=== PATIENT | male | born 1990 | race Caucasian/White ===

== ENCOUNTER 2018-01-20 14:03 | Emergency (ER) | payer MEDICARE, MEDICAID ==
[~2018-01-20] VITALS: Ht 177.8 cm; Wt 75.0 kg
[~2018-01-20 14:03] MED LIST: CLON1TAB4 PO; LISD50CA3 PO; QUET25TA PO
[2018-01-20 14:21] VITALS: BP 131/70
[2018-01-20 15:18] LABS: BASOPHILS % (AUTO) 0.3 % (0-1); EOSINOPHILS # (AUTO) 0.4 X10'3 (0-0.9); EOSINOPHILS % (AUTO) 7.5 % (0-6); HEMATOCRIT 40.3 % (42.0-52.0); LYMPHOCYTES # (AUTO) 1.8 X10'3 (1.1-4.8); LYMPHOCYTES % (AUTO) 32.3 % (21-51); MEAN CORPUSCULAR HEMOGLOBIN 31.7 PG (27.0-31.0); MEAN CORPUSCULAR HGB CONC 34.7 % (33.0-36.5); MEAN CORPUSCULAR VOLUME 91.5 FL (78-98); MONOCYTES # (AUTO) 0.6 X10'3 (0-0.9); NEUTROPHILS # (AUTO) 2.7 X10'3 (1.8-7.7); NEUTROPHILS % (AUTO) 48.9 % (42-75); PLATELET COUNT 219 X10'3 (140-440); RED BLOOD COUNT 4.41 X10'6 (4.70-6.10); RED CELL DISTRIBUTION WIDTH 13.4 % (11.5-14.5); WHITE BLOOD COUNT 5.4 X10'3 (4.5-11.0)
[2018-01-20 15:46] LABS: ALANINE AMINOTRANSFERASE 32 U/L (12-78); ALBUMIN 3.3 G/DL (3.4-5.0); ALKALINE PHOSPHATASE 76 IU/L (46-116); ANION GAP 10 (8-16); ASPARTATE AMINO TRANSFERASE 17 U/L (10-37); BILIRUBIN,TOTAL 0.2 MG/DL (0.1-1.0); BLOOD UREA NITROGEN 9 MG/DL (7-18); BUN/CREATININE RATIO 10.6 (5.4-32.0); CALCIUM 8.5 MG/DL (8.5-10.1); CHLORIDE 103 MMOL/L (99-107); CREATININE 0.85 MG/DL (0.60-1.10); ETHANOL < 0.010 GM/DL (0.0-0.010); GLUCOSE 122 MG/DL (70-104); POTASSIUM 3.7 MMOL/L (3.5-5.1); SODIUM 140 MMOL/L (135-145); TOTAL CARBON DIOXIDE 27.5 MMOL/L (24-32); TOTAL PROTEIN 6.6 G/DL (6.4-8.2); eGFR > 90 ML/MIN
[2018-01-20 15:48] LABS: ACETAMINOPHEN < 2.0 UG/ML (10-30)
[2018-01-20 16:01] LABS: CLARITY,URINE CLEAR (Clear); COLOR,URINE YELLOW (Yellow); GLUCOSE, URINE NEGATIVE (Neg); KETONES,URINE NEGATIVE (Neg); LEUKOCYTE ESTERASE ,URINE NEGATIVE (Neg); NITRITES, URINE NEGATIVE (Neg); OCCULT BLOOD,URINE NEGATIVE (Neg); PH,URINE 6.5 (4.8-8.0); PROTEIN,URINE NEGATIVE (Neg); UA COLLECTION TYPE NON-SPECIFIED
[2018-01-20 16:06] LABS: URINE AMPHETAMINE SCREEN NEGATIVE (Neg); URINE BARBITUATE SCREEN NEGATIVE (Neg); URINE BENZODIAZEPINES SCREEN NEGATIVE (Neg); URINE CANNABINOID SCREEN POSITIVE (Neg); URINE COCAINE SCREEN NEGATIVE (Neg); URINE METHADONE SCREEN NEGATIVE (Neg); URINE OPIATE SCREEN NEGATIVE (Neg); URINE PHENCYCLIDINE SCREEN NEGATIVE (Neg)
== END 2018-01-20 20:25 | disposition home or self-care (01) ==
LOC: ER 14:04
DX: F20.9 Schizophrenia, unspecified (principal); F19.10 Other psychoactive substance abuse, uncomplicated; F12.10 Cannabis abuse, uncomplicated; F15.10 Other stimulant abuse, uncomplicated; F41.9 Anxiety disorder, unspecified; Z88.0 Allergy status to penicillin; Z56.0 Unemployment, unspecified
CPT/HCPCS: 36415; 80053; 80305; 80320; 80329; 81003; 84443; 85025; 99284

== ENCOUNTER 2022-03-06 11:21 | Emergency (ER) | payer BC, MEDICAID ==
[~2022-03-06] VITALS: Ht 177.8 cm; Wt 61.4 kg
[~2022-03-06 11:21] MED LIST changes: -CLON1TAB4 PO; -LISD50CA3 PO
[2022-03-06] MEDS ORDERED: diphenhydrAMINE 50 mg/ml inj IM ONE (12:40)
[2022-03-06] MEDS ORDERED: LORazepam 2 mg/ml vial IM ONE (12:40)
[2022-03-06] MEDS ORDERED: haloperidol lactate 5mg/ml inj IM ONE (12:40)
[2022-03-06] MEDS ORDERED: [UNRECOGNIZED DRUG - CODE] PO (13:02)
[2022-03-06] MEDS ORDERED: HYDR-3927 PO (13:02)
--- NOTE | 2022-03-06 13:09 | NUR ---
PATIENT DRESSED IN GREEN SCRUBS AND IS STILL ACTIVE AND EASILY AGITATED WHEN ASKED TO REMOVED HIS BRACELETS AND RINGS. RESTING ON GURNEY AND VISIBLE FROM NURSES STATION.
[2022-03-06 13:59] LABS: BASOPHILS % (AUTO) 0.8 % (0-1); EOSINOPHILS # (AUTO) 0.2 X10'3 (0-0.9); EOSINOPHILS % (AUTO) 4.3 % (0-6); HEMATOCRIT 39.7 % (42.0-52.0); HEMOGLOBIN 13.3 g/dl (14.0-17.9); LYMPHOCYTES # (AUTO) 1.1 X10'3 (1.1-4.8); LYMPHOCYTES % (AUTO) 25.2 % (21-51); MEAN CORPUSCULAR HEMOGLOBIN 29.9 PG (27.0-31.0); MEAN CORPUSCULAR HGB CONC 33.5 g/dL (33.0-36.5); MEAN CORPUSCULAR VOLUME 89.2 FL (78-98); MEAN PLATELET VOLUME 8.1 FL (7.4-10.4); MONOCYTES # (AUTO) 0.5 X10'3 (0-0.9); NEUTROPHILS # (AUTO) 2.5 X10'3 (1.8-7.7); NEUTROPHILS % (AUTO) 57.7 % (42-75); PLATELET COUNT 184 X10'3 (140-440); RED BLOOD COUNT 4.45 X10'6 (4.70-6.10); RED CELL DISTRIBUTION WIDTH 12.8 % (11.5-14.5); WHITE BLOOD COUNT 4.3 X10'3 (4.5-11.0)
[2022-03-06 14:18] LABS: ALANINE AMINOTRANSFERASE 51 U/L (12-78); ALBUMIN 3.5 G/DL (3.4-5.0); ALBUMIN/GLOBULIN RATIO 1.3 (1.1-1.5); ALKALINE PHOSPHATASE 57 IU/L (46-116); ANION GAP 11 (8-16); ASPARTATE AMINO TRANSFERASE 49 U/L (10-37); BILIRUBIN,TOTAL 0.7 MG/DL (0.1-1.0); BLOOD UREA NITROGEN 9 MG/DL (7-18); BUN/CREATININE RATIO 10.3 (5.4-32.0); CALCIUM 8.2 MG/DL (8.5-10.1); CHLORIDE 104 MMOL/L (99-107); CREATININE 0.87 MG/DL (0.60-1.10); GLUCOSE 99 MG/DL (70-104); POTASSIUM 3.7 MMOL/L (3.5-5.1); SODIUM 142 MMOL/L (135-145); TOTAL CARBON DIOXIDE 27.5 MMOL/L (24-32); TOTAL PROTEIN 6.2 G/DL (6.4-8.2); eGFR > 90 ML/MIN
[2022-03-07 02:55] LABS: URINE AMPHETAMINE SCREEN NEGATIVE (Neg); URINE BARBITUATE SCREEN NEGATIVE (Neg); URINE BENZODIAZEPINES SCREEN NEGATIVE (Neg); URINE CANNABINOID SCREEN NEGATIVE (Neg); URINE COCAINE SCREEN NEGATIVE (Neg); URINE METHADONE SCREEN NEGATIVE (Neg); URINE OPIATE SCREEN NEGATIVE (Neg); URINE PHENCYCLIDINE SCREEN NEGATIVE (Neg)
[2022-03-07 03:02] LABS: CLARITY,URINE CLEAR (Clear); GLUCOSE, URINE NEGATIVE (Neg); KETONES,URINE NEGATIVE (Neg); LEUKOCYTE ESTERASE ,URINE NEGATIVE (Neg); NITRITES, URINE NEGATIVE (Neg); OCCULT BLOOD,URINE NEGATIVE (Neg); PH,URINE 6.5 (4.8-8.0); PROTEIN,URINE NEGATIVE (Neg); UROBILINOGEN,URINE 0.2 E.U/dL (0.2-1.0)
[2022-03-07 03:04] LABS: COLOR,URINE AMBER (Yellow); UA COLLECTION TYPE CLN CATCH MIDSTREAM
[2022-03-07] MEDS ORDERED: HYDR25CA PO (05:30)
[2022-03-07] MEDS: hydrOXYzine 25 MG tablet PO SCH (08:00)
[2022-03-07] MEDS: TYPE IN GENERIC & BRAND NAME OF PATIENT MED STRENGTH & FORM PO SCH (08:00)
--- NOTE | 2022-03-07 11:09 | NUR ---
TC FROM PATIENT'S FATHER, MARVIN AVITIA. FATHER WILL BE SENDING PATIENT'S HOME MEDICATION VIA LOG CHIPPER OPERATOR.
--- NOTE | 2022-03-07 16:00 | NUR ---
RECEIVED PATIENT INTO ROOM 22, REQUESTED EAR PLUGS, OFFERED WATER. LAYING IN BED COMFORTABLY.
--- NOTE | 2022-03-07 19:29 | NUR ---
The patient has been restless but pleasant and redirectable. He denies suicidal thoughts or thoughts to harm others. He does report constant voices and when asked what they were saying he stated, "Nothing at all really" He appears disheveled. His speech is slightly rapid.
--- NOTE | 2022-03-07 20:13 | NUR ---
The patient is resting on his bed.
--- NOTE | 2022-03-07 22:01 | NUR ---
The patient is resting on his bed. He was up once to use the bathroom
--- NOTE | 2022-03-07 23:19 | NUR ---
The patient appears to be sleeping.
--- NOTE | 2022-03-08 00:31 | NUR ---
The patient appears to be sleeping
--- NOTE | 2022-03-08 01:51 | NUR ---
The patient appears to be sleeping
--- NOTE | 2022-03-08 03:08 | NUR ---
The patient appears to be sleeping
--- NOTE | 2022-03-08 05:02 | NUR ---
The patient appeared to have slept well during the night
[2022-03-08 06:21] VITALS: BP 99/67
--- NOTE | 2022-03-08 07:00 | NUR ---
Assumed care, Resting in bed with eyes closed. No s/s of distress.
--- NOTE | 2022-03-08 07:01 | NUR ---
PATIENTS DAD PHONE # [phone]
[2022-03-08] MEDS: hydrOXYzine 25 MG tablet PO SCH ×2 (08:00→08:34)
[2022-03-08] MEDS: TYPE IN GENERIC & BRAND NAME OF PATIENT MED STRENGTH & FORM PO SCH (08:34)
--- NOTE | 2022-03-08 09:00 | NUR ---
patient laying in bed awake, resting comfortably.
--- NOTE | 2022-03-08 11:00 | NUR ---
patient laying in bed awake, no s/sx of distress.
[2022-03-08] MEDS ORDERED: nicotine 14mg patch - 24hr TD ONE (13:30)
--- NOTE | 2022-03-08 14:00 | NUR ---
patient requested his suboxone medication received order, patient notified.
[2022-03-08] MEDS ORDERED: buprenorphine/naloxone 8MG-2MG SUBlingual film SL SCH (14:05)
--- NOTE | 2022-03-08 14:35 | NUR ---
Received call from [facility] patient accepted at [facility] in [place] clam picker time 1500, patient made aware accepting of transfer.
--- NOTE | 2022-03-08 15:03 | NUR ---
Patient picked up to be transferred to [facility], medications sent with wood pile driver operator as well as belongings. escorted out by security.
== END 2022-03-08 15:29 ==
LOC: ER 11:21
DX: F79 Unspecified intellectual disabilities (principal); Z20.822 Contact with and (suspected) exposure to COVID-19; R45.851 Suicidal ideations; F41.9 Anxiety disorder, unspecified; F20.9 Schizophrenia, unspecified; F12.90 Cannabis use, unspecified, uncomplicated; F15.90 Other stimulant use, unspecified, uncomplicated; F11.90 Opioid use, unspecified, uncomplicated; Z72.89 Other problems related to lifestyle; Z56.0 Unemployment, unspecified; Z88.0 Allergy status to penicillin; Z79.899 Other long term (current) drug therapy
CPT/HCPCS: 36415; 80053; 80305; 81003; 85025; 87635; 96372; 99285; C9803; J1200; J1630; J2060; Q0177

== ENCOUNTER 2022-03-19 21:00 | Emergency (ER) | payer BC, MEDICAID ==
[~2022-03-19] VITALS: Ht 177.8 cm; Wt 64.5 kg
[~2022-03-19 21:00] MED LIST changes: +HYDR25CA PO; -QUET25TA PO; +[UNRECOGNIZED DRUG - CODE] PO
[2022-03-19 21:09] VITALS: BP 117/69
[2022-03-19] MEDS ORDERED: hydrOXYzine 25 MG tablet PO ONE (21:45)
[2022-03-19] MEDS ORDERED: OLANZapine 2.5MG tablet PO STA ×2 (22:25→22:39)
[2022-03-20] MEDS ORDERED: OLANZapine 2.5MG tablet PO SCH (08:00)
== END 2022-03-19 22:58 | disposition home or self-care (01) ==
LOC: ER 21:00
DX: Z00.00 Encounter for general adult medical examination without abnormal findings (principal); F12.90 Cannabis use, unspecified, uncomplicated; F11.90 Opioid use, unspecified, uncomplicated; F15.90 Other stimulant use, unspecified, uncomplicated; Z56.0 Unemployment, unspecified; Z88.0 Allergy status to penicillin; Z79.899 Other long term (current) drug therapy
CPT/HCPCS: 99283; Q0177

== ENCOUNTER 2022-06-09 21:47 | Inpatient (IN) | payer BC, MEDICAID ==
[~2022-06-09] VITALS: Ht 177.8 cm; Wt 63.3 kg
[2022-06-09] MEDS ORDERED: haloperidol lactate 5mg/ml inj IM ONE (22:30)
[2022-06-09] MEDS ORDERED: LORazepam 2 mg/ml vial IM ONE (22:40)
[2022-06-09] MEDS ORDERED: diphenhydrAMINE 50 mg/ml inj IM ONE (22:40)
--- NOTE | 2022-06-09 22:44 | NUR ---
IRENE RAN OFF THE ER AFTER HE USED THE BATHROOM. HE WAS CHASED BY THE POULTRY PROCESSOR AND SECURITY THAT HAD ESCORTED HIM. BROUGHT BY [facility]O ROOM ANDF MEDICATED ORDERED.
[2022-06-09 22:45] LABS: CLARITY,URINE CLEAR (Clear); COLOR,URINE YELLOW (Yellow); GLUCOSE, URINE NEGATIVE (Neg); KETONES,URINE 15 mg/dl (Neg); LEUKOCYTE ESTERASE ,URINE NEGATIVE (Neg); NITRITES, URINE NEGATIVE (Neg); OCCULT BLOOD,URINE LARGE (Neg); PROTEIN,URINE TRACE mg/dl (Neg); UROBILINOGEN,URINE 0.2 E.U/dL (0.2-1.0)
[2022-06-09 22:48] LABS: UA COLLECTION TYPE CLN CATCH MIDSTREAM
[2022-06-09 22:52] LABS: BACTERIA,URINE FEW /HPF (Neg); RBC,URINE 20-50 /HPF (0-2); SQUAMOUS EPITHELIAL CELL,UR NONE SEEN /LPF (FEW); WBC,URINE NONE SEEN /HPF (0-4)
[2022-06-09 23:15] LABS: BASOPHILS # (AUTO) 0.1 X10'3 (0-0.2); BASOPHILS % (AUTO) 0.5 % (0-1); EOSINOPHILS % (AUTO) 0.1 % (0-6); HEMOGLOBIN 14.7 g/dl (14.0-17.9); LYMPHOCYTES # (AUTO) 1.2 X10'3 (1.1-4.8); LYMPHOCYTES % (AUTO) 12.1 % (21-51); MEAN CORPUSCULAR HEMOGLOBIN 30.5 PG (27.0-31.0); MEAN CORPUSCULAR HGB CONC 34.1 g/dL (33.0-36.5); MEAN CORPUSCULAR VOLUME 89.5 FL (78-98); MEAN PLATELET VOLUME 8.1 FL (7.4-10.4); MONOCYTES # (AUTO) 1.1 X10'3 (0-0.9); MONOCYTES % (AUTO) 11.1 % (2-12); NEUTROPHILS # (AUTO) 7.8 X10'3 (1.8-7.7); NEUTROPHILS % (AUTO) 76.2 % (42-75); PLATELET COUNT 261 X10'3 (140-440); RED BLOOD COUNT 4.81 X10'6 (4.70-6.10); WHITE BLOOD COUNT 10.3 X10'3 (4.5-11.0)
--- NOTE | 2022-06-09 23:21 | NUR ---
PATIENT IS PACING AROUND HIS ROOM
[2022-06-09 23:25] LABS: URINE AMPHETAMINE SCREEN NEGATIVE (Neg); URINE BARBITUATE SCREEN NEGATIVE (Neg); URINE BENZODIAZEPINES SCREEN NEGATIVE (Neg); URINE CANNABINOID SCREEN NEGATIVE (Neg); URINE COCAINE SCREEN NEGATIVE (Neg); URINE METHADONE SCREEN NEGATIVE (Neg); URINE PHENCYCLIDINE SCREEN POSITIVE (Neg)
[2022-06-09 23:34] LABS: ALANINE AMINOTRANSFERASE 23 U/L (12-78); ALBUMIN 4.5 G/DL (3.4-5.0); ALBUMIN/GLOBULIN RATIO 1.4 (1.1-1.5); ALKALINE PHOSPHATASE 80 IU/L (46-116); ANION GAP 15 (8-16); ASPARTATE AMINO TRANSFERASE 21 U/L (10-37); BILIRUBIN,TOTAL 0.8 MG/DL (0.1-1.0); BLOOD UREA NITROGEN 19 MG/DL (7-18); BUN/CREATININE RATIO 13.4 (5.4-32.0); CALCIUM 9.3 MG/DL (8.5-10.1); CHLORIDE 108 MMOL/L (99-107); CREATININE 1.42 MG/DL (0.60-1.10); ETHANOL < 0.010 GM/DL (0.0-0.010); GLUCOSE 143 MG/DL (70-104); POTASSIUM 3.6 MMOL/L (3.5-5.1); SODIUM 145 MMOL/L (135-145); TOTAL CARBON DIOXIDE 22.2 MMOL/L (24-32); TOTAL PROTEIN 7.7 G/DL (6.4-8.2); eGFR 58 ML/MIN
--- NOTE | 2022-06-10 00:12 | NUR ---
PT IS RESTING IN BED AND APPEARS TO BE SLEEPING. EQUAL RISE AND FALL OF CHEST NOTED
--- NOTE | 2022-06-10 00:45 | NUR ---
PATIENT IS AWAKE AND IN BED AT THIS TIME.
--- NOTE | 2022-06-10 01:11 | NUR ---
PT IS PACING IN ROOM, TALKING TO HIMSELF AND PICKING AT THE GROUND. PT IS IN NO APPARENT DISTRESS.
--- NOTE | 2022-06-10 02:13 | NUR ---
PT AT THE [facility] STATION, REQUESTING FOOD TRAY. SNACK PROVIDED. PT ATE AND IS NOW LAYING IN BED. MONTIORING ONGOING
--- NOTE | 2022-06-10 03:46 | NUR ---
PATIENT IS AWAKE IN HIS ROOM. INTERMITTENTLY PACES AROUND AND THEN SITS ON HIS BED. IN NO FORM OF DISTRESS. MONITORING ONGOING.
--- NOTE | 2022-06-10 05:09 | NUR ---
AWAKE IN HIS ROOM, IN NO FORM OF DISTRESS. SAFETY MAINTAINED
--- NOTE | 2022-06-10 06:28 | NUR ---
PATIENT APPEARS TO BE FINALLY SLEEPING IN BED.
--- NOTE | 2022-06-10 07:25 | NUR ---
Pt. was trasferred over from the Main ER. He was able to ambulate accompainied by Tech. Pt. appears impulsive and somewhat hypomanic, he required direction to stay in his room. Will continue to monitor closely.
--- NOTE | 2022-06-10 09:16 | NUR ---
[facility] and doseages. Addendum: 06/10/22 at 1209 by JANEY Pt. reports he has not been taking his ordered Suboxone.
[2022-06-10] MEDS ORDERED: HYDR-3686 PO (09:22)
[2022-06-10] MEDS ORDERED: [UNRECOGNIZED DRUG - CODE] PO (09:22)
--- NOTE | 2022-06-10 09:30 | NUR ---
Pt. is laying in bed sleeping on his left side at this time, rr are even and unlabored.
[2022-06-10] MEDS: [UNRECOGNIZED DRUG - OTHER] PO SCH (09:44)
--- NOTE | 2022-06-10 09:49 | NUR ---
Per pharmacy, pt's home medication Azstarys is not available at the hospital and will need to be brought in from home. Will endorse to pt. Addendum: 06/10/22 at 1027 by JANEY Pt. reports that no-one is available to bring his medication in from home, will endorse to Josselyn garcia.
--- NOTE | 2022-06-10 11:02 | NUR ---
Pt. up at this time, exhibiting random arm movements and dance moves. 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 Able to be redirected.
--- NOTE | 2022-06-10 11:27 | NUR ---
Pt. is sitting up playing a board game at bedside at this time. 1:1 was completed at bedside, pt. contiues to presnt as hypomanic, impulsive, and exhibits pressured and hyperverbal speech. He is disorganized and tangental and requires frequent redirection in order to respond to questions. Pt. is A&O X2 (name and time), he reports he believes he is in [place] and he is here because of the previous of his mother. Pt. states sadly, "That is where she ." Pt. 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 Pt. denies any S/I, H/I, or A/V/LITTLEJOHN, however he appears to be internaly preoccupied AEB actively responding and guesturing aloud at intervals. Addendum: 06/10/22 at 1210 by JANEY Pt. reports he is hoping to get in to [facility].
--- NOTE | 2022-06-10 12:04 | NUR ---
Pt. continues to exhibit restless behaviors AEB random body movements, but denies the need for an anxiolytic at this time. Will continue to monitor closely.
[2022-06-10] MEDS ORDERED: BUPR1FIL17 SL (12:45)
--- NOTE | 2022-06-10 13:00 | NUR ---
Pt. attmpted to snort shampoo out of a bottle while it was sitting his bedside table. Shampoo bottle was removed and pt. was able to be redircted. Will continue to monitor pt. closely.
--- NOTE | 2022-06-10 13:22 | NUR ---
Pt. now requesting Suboxone and reports he last took a dose X4 days ago, this order was verified with pt's pharmacy, [facility]. This was endorsed to Dr. Nicole and Suboxone was ordered to start now and next dose to be given tonight. Will endorse to Noc shift.
--- NOTE | 2022-06-10 15:35 | NUR ---
Pt. is laying in bed at this time, he continues to present as restless and does get up frequently, but returns back to bed. Pt. continues to deny the need for any anxiolytic. Will continue to monitor closely.
--- NOTE | 2022-06-10 17:03 | NUR ---
Pt. talking with [facility] at this time, he became agitated when informed his father is worried about him r/t his recent erratic behaviors. Pt. yelled out, "He's saying that s... again?!" He was able to be redirected and provided with snacks. Will continue to monitor closely.
--- NOTE | 2022-06-10 17:42 | NUR ---
Pt. is laying in ed at this time, rr are even and unlabored.
--- NOTE | 2022-06-10 18:56 | NUR ---
Patient resting quietly in bed in line of sight of staff.
--- NOTE | 2022-06-10 19:24 | NUR ---
Patient resting in bed, quietly
[2022-06-10] MEDS ORDERED: BUPRENORPHINE HCL SL SCH (20:00)
[2022-06-10] MEDS ORDERED: NALOXONE HCL SL SCH (20:00)
[2022-06-10] MEDS ORDERED: buprenorphine/naloxone 2-0.5mg sublingual tablet SL SCH (20:45)
[2022-06-10] MEDS ORDERED: hydrOXYzine 25 MG tablet PO SCH (21:00)
--- NOTE | 2022-06-10 21:44 | NUR ---
Patient resting in bed, awake, pm meds administered as ordered.
--- NOTE | 2022-06-10 23:06 | NUR ---
Patient resting quietly in bed in a safe environment, requested snack supplied.
--- NOTE | 2022-06-11 00:12 | NUR ---
packet faxed to [facility] at [phone]
--- NOTE | 2022-06-11 00:21 | NUR ---
Patient awake, talking to self.
--- NOTE | 2022-06-11 01:32 | NUR ---
Patient awake, in bed, talking to self.
--- NOTE | 2022-06-11 02:54 | NUR ---
Patient, chasity, states he's unable to go back to sleep and requesting snacks- supplied.
--- NOTE | 2022-06-11 03:51 | NUR ---
Patient still talking to self, but quietly.
--- NOTE | 2022-06-11 05:14 | NUR ---
Patient is resting in bed, vital signs wnl.
--- NOTE | 2022-06-11 07:05 | NUR ---
Received Pt in bed sleeping w/o distress at this time.
[2022-06-11] MEDS: [UNRECOGNIZED DRUG - OTHER] PO SCH (08:00)
[2022-06-11] MEDS ORDERED: buprenorphine/naloxone 2-0.5mg sublingual tablet SL SCH (08:15)
--- NOTE | 2022-06-11 08:30 | NUR ---
Pt awake and asking for AM med. Pt ate breakfast and is cooperative.
--- NOTE | 2022-06-11 10:10 | NUR ---
Received call from [facility] stating they had accepted Pt, and would be sending staff to pick him up soon.
--- NOTE | 2022-06-11 10:25 | NUR ---
Pt took AM med w/o issue and thankful.
--- NOTE | 2022-06-11 10:45 | NUR ---
Pt escorted to [facility] by Industrial Automation Specialist and security.
[2022-06-11] MEDS ORDERED: magnesium hydroxide 30ml (MOM) UD suspension PO PRN (11:25)
[2022-06-11] MEDS ORDERED: mag hydrox/Alum hydrox/simeth 30ml oral suspension PO PRN (11:25)
[2022-06-11] MEDS ORDERED: loperamide 2mg capsule PO PRN (11:25)
[2022-06-11] MEDS ORDERED: acetaminophen 325mg tablet PO PRN (11:25)
[2022-06-11 11:32] VITALS: BP 119/71
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
[2022-06-11] MEDS: acetaminophen 325mg tablet PO PRN (13:41)
[2022-06-11] MEDS: nicotine 21mg patch - 24 hr TD SCH (13:50)
[2022-06-11] MEDS: NICOTINE POLACRILEX 2 MG LOZENGE BC PRN ×2 (13:50→21:38)
[2022-06-11] MEDS ORDERED: buprenorphine/naloxone 2-0.5mg sublingual tablet SL ONE (15:00)
[2022-06-11] MEDS ORDERED: olanzapine 10mg tablet PO PRN (15:05)
[2022-06-11] MEDS ORDERED: methylphenidate 5mg tablet PO ONE (18:50)
[2022-06-11 19:00] VITALS: BP 134/66
[2022-06-11] MEDS ORDERED: buprenorphine/naloxone 8MG-2MG SUBlingual film SL SCH (20:00)
[2022-06-11] MEDS ORDERED: hydrOXYzine 25 MG tablet PO SCH (21:00)
[2022-06-11] MEDS: OLANZapine 2.5MG tablet PO SCH (21:12)
[2022-06-11] MEDS: buprenorphine/naloxone 8MG-2MG SUBlingual film SL SCH (21:13)
[2022-06-11] MEDS: hydrOXYzine 25 MG tablet PO PRN (22:34)
[2022-06-12] MEDS: hydrOXYzine 25 MG tablet PO PRN (01:20)
--- NOTE | 2022-06-12 05:03 | NUR ---
PRN Atarax x2 for sleep. Pt refused any other sleep medication. Got only about 2 hours sleep.
--- NOTE | 2022-06-12 05:05 | NUR ---
Nursing Progress Note Problem: PT admitted on a 5150 for DTS/GD from our ER at 1033. Pt is hyper verbal, has disorganized speech with loose associations. He reports he has not been eating, drinking or sleeping for the past three days. Unable to develop a viable plan. Pt has history of Schizophrenia. Pt. 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 Pt. has self-inflicted abrasions on his bilateral lower extremities and the back of his right thigh, these areas appear to be scabbed over and healing well. Pictures placed in pt's chart Intervention: Provide a safe and therapeutic environment, Use clear communication with active listening. Provide positive encouragement. Medication administration, monitoring and education Q15 minute safety checks. Response: Patient up on unit at start of shift. His speech is rapid but linear, he is obsessively making and repeatedly straightening his bed, and he rocks his body and paces at time. He denies that he is manic or has racing thoughts "I just like to be doing something." He is Cooperative and pleasant, took meds encouraged to take PRN medications to help him sleep. Declined the second dose of Zyprexa that was available to him. Agreed to take PRN Atarax and then a repeat dose. Given a snack and a warm blanket encouraged relaxation to try and promote sleep. Pt keeps stating "I am sleeping great But only has a total of 2 hours of sleep for the shift. Per tech spent a lot of the night lying in bed awake. Plan: Patient requires crisis interruption and stabilization with medication management and monitoring in a safe and therapeutic environment.
[2022-06-12] MEDS: buprenorphine/naloxone 8MG-2MG SUBlingual film SL SCH ×2 (07:49→20:00)
[2022-06-12] MEDS: nicotine 21mg patch - 24 hr TD SCH ×2 (07:49→08:00)
[2022-06-12] MEDS: [UNRECOGNIZED DRUG - OTHER] PO SCH (07:50)
[2022-06-12] MEDS: methylphenidate 5mg tablet PO SCH ×3 (07:50→17:00)
[2022-06-12 08:00] VITALS: BP 107/60
--- NOTE | 2022-06-12 09:29 | NUR ---
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 Pt on vegan diet w/ double entrees per diet order/pt preference PO 75-100% avg meals meeting needs. Skin intact w/ healing abrasions per EMR. Pt has no edema, normal muscle strength, and stable wt hx despite reporting 24-33lb wt loss per EMR. Pt lacks minimum malnutrition criteria at this time. RD d/w RN regarding B12 vs MVI supplementation given vegan diet preferences if MD agreeable. Will monitor for further nutrition intervention needs this admit. Addendum: 06/12/22 at [address] Amended: Links added.
[2022-06-12] MEDS: NICOTINE POLACRILEX 2 MG LOZENGE BC PRN ×3 (13:38→19:31)
[2022-06-12] MEDS: nicotine 7mg patch - 24hr TD SCH (16:59)
--- NOTE | 2022-06-12 17:03 | NUR ---
Nursing Progress Note: Johnathan Problem: Pt is hyper-verbal, has disorganized speech with loose associations. He reports he has not been eating, drinking or sleeping for the past three days. Unable to develop a viable plan. Pt has history of Schizophrenia. Intervention: Medication given as ordered. Provided with a safe and therapeutic environment, clear communication, active listening and positive encouragement. Response: Patient is awake in his room at the start of the shift. Takes a short nap before breakfast. Cooperative with assessment and medication except for his nicotine patch. States, I dont think I need those. They are D/Cd until later in the afternoon he complains to the MD of nicotine cravings. New order for 7mg nicotine patch is given. Patient appears hypo manic. He is hyper-verbal when engaged in conversation. Speech is rapid. Patient denies any mental health symptoms at this time but he appears internally occupied. Isolates to his room for most of the shift. Plan: Patient continues to require crisis interruption and stabilization with medication management and monitoring in a safe and therapeutic environment.
[2022-06-12 20:00] VITALS: BP 137/87
[2022-06-12] MEDS: OLANZapine 2.5MG tablet PO SCH (21:08)
--- NOTE | 2022-06-13 03:05 | NUR ---
Nursing Progress Note Problem: PT admitted on a 5150 for DTS/GD from our ER at 1033. Pt is hyper verbal, has disorganized speech with loose associations. He reports he has not been eating, drinking or sleeping for the past three days. Unable to develop a viable plan. Pt has history of Schizophrenia. Pt. 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 Pt. has self-inflicted abrasions on his bilateral lower extremities and the back of his right thigh, these areas appear to be scabbed over and healing well. Pictures placed in pt's chart Intervention: Provide a safe and therapeutic environment, Use clear communication with active listening. Provide positive encouragement. Medication administration, monitoring and education Q15 minute safety checks. Response: Patient up on unit at start of shift. He was less hyperverbal and appeared fatigued. Denied MH symptoms not observed responding to internal stimuli. He wanted MD called to make med changes then changed his mind and said he would take the Zyprexa. After taking the PRN Zyprexa on going to bed pt came out of his room yelled out something about his dad. Per pt he was having a bad dream which he said was caused by the Zyprexa. Pt went back to sleep and appears to be sleeping at this time. Plan: Patient requires crisis interruption and stabilization with medication management and monitoring in a safe and therapeutic environment.
[2022-06-13 08:00] VITALS: BP 100/58
[2022-06-13] MEDS: [UNRECOGNIZED DRUG - OTHER] PO SCH (08:00)
[2022-06-13] MEDS: multivitamins, therapeutics tablet PO SCH (08:08)
[2022-06-13] MEDS: methylphenidate 5mg tablet PO SCH ×3 (08:09→16:10)
[2022-06-13] MEDS: buprenorphine/naloxone 8MG-2MG SUBlingual film SL SCH ×2 (08:10→20:38)
[2022-06-13] MEDS: nicotine 7mg patch - 24hr TD SCH (08:23)
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
[2022-06-13 14:58] LABS: HEMOGLOBIN A1C 5.6 % (4.5-6.2)
[2022-06-13 15:18] LABS: ALANINE AMINOTRANSFERASE 41 U/L (12-78); ALBUMIN/GLOBULIN RATIO 1.1 (1.1-1.5); ALKALINE PHOSPHATASE 88 IU/L (46-116); ANION GAP 6 (8-16); ASPARTATE AMINO TRANSFERASE 26 U/L (10-37); BILIRUBIN,TOTAL 0.1 MG/DL (0.1-1.0); BLOOD UREA NITROGEN 8 MG/DL (7-18); BUN/CREATININE RATIO 9.9 (5.4-32.0); CALCIUM 9.1 MG/DL (8.5-10.1); CHLORIDE 103 MMOL/L (99-107); CHOL/HDL RATIO 2.9 (0.00-4.99); CHOLESTEROL 144 MG/DL (0-200); CREATININE 0.81 MG/DL (0.60-1.10); GLUCOSE 91 MG/DL (70-104); HDL CHOLESTEROL 49 MG/DL (35-60); LDL CHOLESTEROL 73 MG/DL (50-100); POTASSIUM 4.2 MMOL/L (3.5-5.1); SODIUM 142 MMOL/L (135-145); TOTAL PROTEIN 7.6 G/DL (6.4-8.2); TRIGLYCERIDES 105 MG/DL (20-135); eGFR > 90 ML/MIN
[2022-06-13] MEDS: NICOTINE POLACRILEX 2 MG LOZENGE BC PRN (15:48)
--- NOTE | 2022-06-13 16:17 | NUR ---
Nursing Progress Note: Problem: Pt is hyper-verbal, has disorganized speech with loose associations. He reports he has not been eating, drinking or sleeping for the past three days. Unable to develop a viable plan. Pt has history of Schizophrenia. Intervention: Medication given as ordered. Provided with a safe and therapeutic environment, clear communication, active listening and positive encouragement. Response: Received Pt in bed sleeping w/o distress at the beginning of this shift. Pt woke and cooperative with vitals and AM meds. And ate breakfast, lunch and snacks well. Pt pleasant and cooperative and remembered this RN from [facility]. Pt isolated to room and napped on and off. Pt denies SI/HI and A/VHs. Pt knows med times and approaches nurse station to remind staff and speaks with pressured speech. Pt concerned about HIV status and spoke with hospitalist about testing. Plan: Patient continues to require crisis interruption and stabilization with medication management and monitoring in a safe and therapeutic environment.
[2022-06-13 16:19] LABS: HIV ANTIBODY 1&2 RAPID NON-REACTIVE (Neg)
[2022-06-13 20:00] VITALS: BP 116/57
[2022-06-13] MEDS: OLANZapine 2.5MG tablet PO SCH (20:38)
[2022-06-13] MEDS: ibuprofen tablet 400 MG TABLET PO PRN (23:23)
--- NOTE | 2022-06-14 01:02 | NUR ---
Nursing Progress Note: Johnathan Problem: Pt is hyper-verbal, has disorganized speech with loose associations. He reports he has not been eating, drinking or sleeping for the past three days. Unable to develop a viable plan. Pt has history of Schizophrenia. Intervention: Medication given as ordered. Provided with a safe and therapeutic environment, clear communication, active listening and positive encouragement. Response: Received Pt sleeping in bed at change of shift. Pt cooperative with vitals and assessment. Pt up for snacks and requested HS medications. Pt endorses both AH and VH but he can tame them and they are not bad right now. Pt to bed shortly after med pass but woke up several times requesting snacks. Plan: Patient continues to require crisis interruption and stabilization with medication management and monitoring in a safe and therapeutic environment.
[2022-06-14 08:00] VITALS: BP 109/70
[2022-06-14] MEDS: [UNRECOGNIZED DRUG - OTHER] PO SCH (08:00)
[2022-06-14] MEDS: methylphenidate 5mg tablet PO SCH ×3 (08:28→16:58)
[2022-06-14] MEDS: buprenorphine/naloxone 8MG-2MG SUBlingual film SL SCH ×2 (08:28→20:42)
[2022-06-14] MEDS: multivitamins, therapeutics tablet PO SCH (08:28)
[2022-06-14] MEDS: nicotine 7mg patch - 24hr TD SCH ×2 (08:29→08:30)
[2022-06-14] MEDS: ibuprofen tablet 400 MG TABLET PO PRN (08:35)
[2022-06-14] MEDS: acetaminophen 325mg tablet PO PRN ×2 (13:02→23:43)
[2022-06-14] MEDS: NICOTINE POLACRILEX 2 MG LOZENGE BC PRN ×2 (14:06→19:19)
--- NOTE | 2022-06-14 15:21 | NUR ---
Nursing Progress Note: Problem: Pt is hyper-verbal, has disorganized speech with loose associations. He reports he has not been eating, drinking or sleeping for the past three days. Unable to develop a viable plan. Pt has history of Schizophrenia. Intervention: Provided 1:1 assessment allowing pt to express thoughts/feelings. Provided medication administration/education/monitoring. Provided safe and supportive environment. Monitored q 15min safety checks. Response: Pt reports he is homeless until he gets his SSI money next week, "maybe on Monday." He reports plans to live in a motel with his [employer] money and apply for a job. Speech remains hyperverbal, disorganized with loose associations. Pt took medications as ordered. He inquired about lab results taken yesterday. He asked for antibiotic cream for his scabs on his legs from self inflicted cuts prior to hospitalization. Plan: Pt placed on voluntary statues today. He continues to require stabilization with medication management and monitoring in a safe and therapeutic environment.
[2022-06-14] MEDS: naproxen sodium 220mg tablet PO PRN (18:48)
[2022-06-14 20:00] VITALS: BP 121/66
[2022-06-14] MEDS: OLANZapine 2.5MG tablet PO SCH (20:42)
--- NOTE | 2022-06-15 01:26 | NUR ---
Nursing Progress Note: Johnathan Problem: Pt is hyper-verbal, has disorganized speech with loose associations. He reports he has not been eating, drinking or sleeping for the past three days. Unable to develop a viable plan. Pt has history of Schizophrenia. Intervention: Provided 1:1 assessment allowing pt to express thoughts/feelings. Provided medication administration/education/monitoring. Provided safe and supportive environment. Monitored q 15min safety checks. Response: Pt up walking the hallways at change of shift. He is pleasant during conversation and endorses AH but they are not bad today. Pt denies SI. Pt up for snacks and took HS medications. Pt requested PRN Tylenol for an achy back. Pt to bed after med pass. Plan: Pt placed on voluntary statues today. He continues to require stabilization with medication management and monitoring in a safe and therapeutic environment.
--- NOTE | 2022-06-15 07:27 | NUR ---
Initial: Pt admitted w/ schizophrenia per EMR. Currently on Vegan diet w/ double entrees per diet order, eating mostly 100% of meals meeting needs at this time. LBM 06/13. No nutrition intervention implemented at this time, will continue to monitor. Recs; 1. Continue Vegetarian diet as tolerated 2. Bowel care PRN 3. Weekly wts Addendum: 06/15/22 at [address] Amended: Links added.
[2022-06-15 08:00] VITALS: BP 121/76
[2022-06-15] MEDS: [UNRECOGNIZED DRUG - OTHER] PO SCH (08:00)
[2022-06-15] MEDS: buprenorphine/naloxone 8MG-2MG SUBlingual film SL SCH ×2 (08:39→20:26)
[2022-06-15] MEDS: methylphenidate 5mg tablet PO SCH ×3 (08:39→16:21)
[2022-06-15] MEDS: multivitamins, therapeutics tablet PO SCH (08:39)
[2022-06-15] MEDS: nicotine 7mg patch - 24hr TD SCH (10:15)
[2022-06-15] MEDS: naproxen sodium 220mg tablet PO PRN ×2 (10:15→14:53)
[2022-06-15] MEDS: NICOTINE POLACRILEX 2 MG LOZENGE BC PRN ×2 (13:44→18:48)
--- NOTE | 2022-06-15 13:56 | NUR ---
CASE MANAGEMENT Met with Pt. today to call Karen with him to find out where his application is at. Left a messaged. Discussed Pt's discharge plan with him. He is not able to return to his dad's home in [place], [place]. He wants to stay in the [place] area and once he has access to his funds would like to find an apartment to rent in the area. We discussed him staying at the [facility] or the [facility] while he awaits his funding. Placed a referral to the [facility] today. Amanda Almonte LCSW
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
[2022-06-15 16:04] LABS: HBSAG SCREEN Negative (Negative)
[2022-06-15] MEDS ORDERED: LORazepam 1 MG tablet PO ONE (16:35)
[2022-06-15 20:00] VITALS: BP 139/86
[2022-06-15] MEDS: OLANZapine 2.5MG tablet PO SCH (20:26)
--- NOTE | 2022-06-16 00:42 | NUR ---
Nursing Progress Note: Johnathan Problem: Pt is hyper-verbal, has disorganized speech with loose associations. He reports he has not been eating, drinking or sleeping for the past three days. Unable to develop a viable plan. Pt has history of Schizophrenia. Intervention: Medication given as ordered. Provided with a safe and therapeutic environment, clear communication, active listening and positive encouragement. Response: Received Pt up walking the hallways. Pt came to this RN requesting nicotine lozenge. Pt was cooperative with care. Pt denies MH symptoms and states that he is good. Participated in snacks and took all HS medications without issue. Pt up several times requesting snacks. Pt went to bed shortly after med pass. Plan: Patient continues to require crisis interruption and stabilization with medication management and monitoring in a safe and therapeutic environment.
[2022-06-16] MEDS: acetaminophen 325mg tablet PO PRN (01:42)
[2022-06-16 07:09] VITALS: BP 109/63
[2022-06-16] MEDS: methylphenidate 5mg tablet PO SCH ×3 (08:30→16:38)
[2022-06-16] MEDS: buprenorphine/naloxone 8MG-2MG SUBlingual film SL SCH ×3 (08:30→21:35)
[2022-06-16] MEDS: multivitamins, therapeutics tablet PO SCH (08:30)
--- NOTE | 2022-06-16 14:23 | NUR ---
DISCHARGE PLAN/CASE MANAGEMENT Pt. plans to discharge to the [facility] he reported he will stay there until he gets in to [facility] which he has been accepted into as of today. He does not want to call them from the hospital, he plans to call them tomorrow once he is discharged to arrange his admission there. He also plans to go to [facility] to access his money but also reported he has EBT food money. He does not want to go back to his father's house in [place] at this time. Amanda Almonte, MOTOR MAN
--- NOTE | 2022-06-16 18:04 | NUR ---
Nursing Progress Note Problem: Pt is hyper-verbal, has disorganized speech with loose associations. He reports he has not been eating, drinking or sleeping for the past three days. Unable to develop a viable plan. Pt has history of Schizophrenia. Intervention: Medication given as ordered. Provided with a safe and therapeutic environment, clear communication, active listening and positive encouragement. Response: Pt. asleep at start of shift. Pt. awoke for breakfast and took all medications. 1:1 done at bedside. Pt. denies SI/HI, A/V hallucinations. Pt. is hyper verbal and asks multiple times about receiving 20mg of Ritalin instead of 15mg. Pt. reports he is hopeful for his future, finishing his degree in [employer] at [employer]. Pt. seems grandiose, talking about get a second degree in [employer]. Pt. observed playing with color checker roving or yarn and chess pieces in the hallway. Plan: Patient continues to require crisis interruption and stabilization with medication management and monitoring in a safe and therapeutic environment.
[2022-06-16 19:00] VITALS: BP 132/83
[2022-06-16] MEDS: OLANZapine 2.5MG tablet PO SCH (21:35)
--- NOTE | 2022-06-17 04:45 | NUR ---
RN PROGRESS NOTE: PROBLEM: Client admitted for hypomania and delusions. Client made grandiose statements. Disorganized. Hx of Schizophrenia. INTERVENTION: I. Provide therapeutic environment. I. Q 15 min checks for safety. I. Assess mood and thought process. I. 1:1 to allow client to express thoughts and feelings. RESPONSE: Client asked for Suboxone at 18:45 and was informed that it was too early to take medication. Client was given a whole film (instead of half). Instructions on the EMAR (and package) state medication is not to be cut, crushed, or chewed. Dr. Brenner was notified. A set of VS was obtained. BP 120/70, HR 70, Resp 18, PO2 96%. Clients respiratory effort was checked during the shift. Client got up several times during the night. Had snack and was medication compliant. Stated, "I'm getting out tomorrow." Clients mood was upbeat. Denies SI/HI.
[2022-06-17] MEDS: multivitamins, therapeutics tablet PO SCH (07:42)
[2022-06-17] MEDS: buprenorphine/naloxone 8MG-2MG SUBlingual film SL SCH (07:43)
[2022-06-17] MEDS: methylphenidate 5mg tablet PO SCH ×3 (07:43→15:36)
[2022-06-17] MEDS: nicotine 7mg patch - 24hr TD SCH (07:44)
[2022-06-17] MEDS ORDERED: BUPR1FIL5 SL ×3 (07:57→12:39)
[2022-06-17] MEDS ORDERED: METH-350 PO (07:57)
[2022-06-17] MEDS ORDERED: OLAN5TAB75 PO (07:57)
[2022-06-17] MEDS ORDERED: HYDR-3686 PO (07:57)
[2022-06-17] MEDS ORDERED: NICO-630 TD (07:57)
[2022-06-17 08:00] VITALS: BP 116/69
[2022-06-17] MEDS ORDERED: METH-348 PO (08:07)
[2022-06-17] MEDS: NICOTINE POLACRILEX 2 MG LOZENGE BC PRN (13:48)
--- NOTE | 2022-06-17 14:37 | NUR ---
Provided Johnathan $2.00 from [employer] so he can pay his co-pay at the pharmacy for his medications. KALE Miranda
--- NOTE | 2022-06-17 14:50 | NUR ---
Discharge Note: Pt. signed all paperwork and copies were placed in chart. All personal belongings listed on inventory sheet were accounted for and received by pt. when leaving. [facility], [address] [place] [address] on June 24 at 11am. Pt. was provided with a cab and ambulated off the unit at 1442.
== END 2022-06-17 14:42 | disposition home or self-care (01) | DRG 885 ==
LOC: ER 21:48 → ED HOLD 06-11 09:50 → ADULT MH 06-11 11:00
PROVIDERS: ADMIT Psychiatry & Neurology Psychiatry; ATTEND Psychiatry & Neurology Psychiatry
DX: F20.9 Schizophrenia, unspecified (principal); N17.9 Acute kidney failure, unspecified; F16.121 Hallucinogen abuse with intoxication with delirium; F25.9 Schizoaffective disorder, unspecified; F11.90 Opioid use, unspecified, uncomplicated; M25.552 Pain in left hip; M25.551 Pain in right hip; R63.6 Underweight; Z20.822 Contact with and (suspected) exposure to COVID-19; F41.9 Anxiety disorder, unspecified; F90.9 Attention-deficit hyperactivity disorder, unspecified type; F17.210 Nicotine dependence, cigarettes, uncomplicated; R04.0 Epistaxis; Z79.899 Other long term (current) drug therapy; Z88.0 Allergy status to penicillin; Z56.0 Unemployment, unspecified; Z68.20 Body mass index [BMI] 20.0-20.9, adult; Z84.89 Family history of other specified conditions; Z71.6 Tobacco abuse counseling
CPT/HCPCS: 36415; 80053; 80061; 80305; 80320; 81001; 83036; 85025; 86703; 86706; 86708; 87081; 87340; 87811; 96372; 99285; J1200; J1630; J2060; Q0177

== ENCOUNTER 2022-06-18 08:22 | Emergency (ER) | payer BC, MEDICAID ==
[~2022-06-18] VITALS: Ht 175.3 cm; Wt 67.3 kg
[~2022-06-18 08:22] MED LIST changes: +BUPR1FIL5 SL; +HYDR-3686 PO; -HYDR25CA PO; +METH-348 PO; +METH-350 PO; +NICO-630 TD; +OLAN5TAB75 PO; -[UNRECOGNIZED DRUG - CODE] PO
--- NOTE | 2022-06-18 13:01 | NUR ---
patient states he took the gummies because he thought they were regular gummies, but also reports some suicidal thoughts since his motther . states he was just released from 5150 hold here yesterday. MLP at bedside, no plan and no active thoughts at this time
--- NOTE | 2022-06-18 13:11 | NUR ---
attempting to contact poison control at this time
--- NOTE | 2022-06-18 13:14 | NUR ---
per poison control, possible diarrhea with no major complaints. check normal lab work and consider iron level. reference [id number]
[2022-06-18 13:47] VITALS: BP 112/61
--- NOTE | 2022-06-18 14:04 | NUR ---
contacted behavioral health at this time to possibly speak with patient per MLP request. patient is requesting to be placed on additional 5150 after being discharged from this facility yesterday
--- NOTE | 2022-06-18 14:36 | NUR ---
patient advised to follow safety plan from discharge. advised he would and would follow up with psychiatrist
== END 2022-06-18 14:37 | disposition home or self-care (01) ==
LOC: ER 08:23
DX: E67.8 Other specified hyperalimentation (principal); T45.2X1A Poisoning by vitamins, accidental (unintentional), initial encounter; F41.9 Anxiety disorder, unspecified; F20.9 Schizophrenia, unspecified; F12.90 Cannabis use, unspecified, uncomplicated; F15.90 Other stimulant use, unspecified, uncomplicated; F11.90 Opioid use, unspecified, uncomplicated; Z56.0 Unemployment, unspecified; Z88.0 Allergy status to penicillin; Z72.89 Other problems related to lifestyle; Z79.899 Other long term (current) drug therapy; Y92.89 Other specified places as the place of occurrence of the external cause
CPT/HCPCS: 99283

== ENCOUNTER 2022-08-11 12:33 | Emergency (ER) | payer BC, MEDICAID ==
[~2022-08-11] VITALS: Ht 175.3 cm; Wt 67.0 kg
[2022-08-11 13:11] VITALS: BP 130/90
[2022-08-11] MEDS ORDERED: mupirocin 2% ointment 22GM TP STA (14:53)
== END 2022-08-11 15:00 | disposition home or self-care (01) ==
LOC: ER 12:33
DX: T16.2XXA Foreign body in left ear, initial encounter (principal); F41.9 Anxiety disorder, unspecified; F20.9 Schizophrenia, unspecified; F12.90 Cannabis use, unspecified, uncomplicated; F15.90 Other stimulant use, unspecified, uncomplicated; F11.90 Opioid use, unspecified, uncomplicated; Z72.89 Other problems related to lifestyle; Z56.0 Unemployment, unspecified; Z88.0 Allergy status to penicillin; Z79.899 Other long term (current) drug therapy; W45.8XXA Other foreign body or object entering through skin, initial encounter; Y93.89 Activity, other specified; Y92.89 Other specified places as the place of occurrence of the external cause; Y99.8 Other external cause status
CPT/HCPCS: 69200; 99284

== ENCOUNTER 2022-09-10 12:13 | Emergency (ER) | payer BC, MEDICAID ==
[~2022-09-10] VITALS: Ht 177.8 cm; Wt 68.2 kg
[2022-09-10 13:33] VITALS: BP 125/87
[2022-09-10] MEDS ORDERED: buprenorphine/naloxone 8MG-2MG SUBlingual film SL ONE (13:54)
== END 2022-09-10 14:08 | disposition home or self-care (01) ==
LOC: ER 12:13
DX: F11.10 Opioid abuse, uncomplicated (principal); F12.90 Cannabis use, unspecified, uncomplicated; F15.20 Other stimulant dependence, uncomplicated; F19.10 Other psychoactive substance abuse, uncomplicated; Z88.0 Allergy status to penicillin; Z56.0 Unemployment, unspecified
CPT/HCPCS: 99283

== ENCOUNTER 2022-11-07 11:57 | Emergency (ER) | payer BC, MEDICAID ==
[~2022-11-07] VITALS: Ht 175.3 cm; Wt 68.0 kg
[2022-11-07 12:32] VITALS: BP 123/70
[2022-11-07] MEDS ORDERED: BUPR1FIL3 SL (13:04)
--- NOTE | 2022-11-08 10:29 | NUR ---
Received order for consult. Patient was discharged. No number on file for me to call and follow up with patient.
== END 2022-11-07 13:26 | disposition home or self-care (01) ==
LOC: ER 11:57
DX: F15.20 Other stimulant dependence, uncomplicated (principal); F20.9 Schizophrenia, unspecified; F19.99 Other psychoactive substance use, unspecified with unspecified psychoactive substance-induced disorder; F12.90 Cannabis use, unspecified, uncomplicated; Z88.0 Allergy status to penicillin; Z56.0 Unemployment, unspecified
CPT/HCPCS: 99281; 99283

== ENCOUNTER 2023-11-12 16:00 | Inpatient (IN) | payer BC, MEDICAID ==
[~2023-11-12] VITALS: Ht 177.8 cm; Wt 69.7 kg
[2023-11-12] MEDS ORDERED: mag hydrox/Alum hydrox/simeth 30ml oral suspension PO PRN (17:25)
[2023-11-12] MEDS ORDERED: magnesium hydroxide 30ml (MOM) UD suspension PO PRN (17:25)
[2023-11-12] MEDS ORDERED: loperamide 2mg capsule PO PRN (17:25)
[2023-11-12 17:29] VITALS: BP 114/78; PULSE 100; RESP 16; TEMP 98.9; O2SAT 100
[2023-11-12] MEDS ORDERED: methadone PO (17:59)
[2023-11-12] MEDS ORDERED: SERD1CAP3 PO (17:59)
[2023-11-12 19:00] VITALS: BP 124/84; PULSE 96; RESP 18; TEMP 97.3; O2SAT 98
[2023-11-12] MEDS: NICOTINE POLACRILEX 2 MG LOZENGE BC PRN ×2 (19:04→21:23)
[2023-11-12] MEDS ORDERED: OLANZapine 5mg rapidly disint. tablet PO ONE (20:20)
[2023-11-13 07:00] VITALS: BP 114/58; PULSE 72; RESP 16; TEMP 98.7; O2SAT 98
[2023-11-13] MEDS: nicotine 7mg patch - 24hr TD SCH (08:41)
[2023-11-13 10:19] LABS: CHOL/HDL RATIO 2.9 (0.00-4.99); CHOLESTEROL 134 MG/DL (0-200); HDL CHOLESTEROL 47 MG/DL (35-60); LDL CHOLESTEROL 68 MG/DL (50-100); TRIGLYCERIDES 80 MG/DL (20-135)
[2023-11-13 10:39] LABS: HEMOGLOBIN A1C 5.2 % (4.5-6.2)
[2023-11-13] MEDS: acetaminophen 325mg tablet PO PRN (16:41)
[2023-11-13] MEDS: NICOTINE POLACRILEX 2 MG LOZENGE BC PRN ×2 (16:41→21:55)
[2023-11-13] MEDS: cephalexin 500mg capsule PO SCH ×2 (16:43→23:04)
[2023-11-13 19:00] VITALS: RESP 16; O2SAT 99
[2023-11-13 19:33] VITALS: BP 120/72; PULSE 75; RESP 16; TEMP 98.6; O2SAT 99
[2023-11-13] MEDS: OLANZAPINE 5 MG TABLET PO SCH (21:16)
[2023-11-14] MEDS: hydrOXYzine 25 MG tablet PO PRN ×2 (03:50→20:24)
[2023-11-14 07:00] VITALS: RESP 16; O2SAT 98
[2023-11-14 08:00] VITALS: BP 122/70; PULSE 74; RESP 16; TEMP 98.4; O2SAT 98
[2023-11-14] MEDS ORDERED: methadone PO (08:00)
[2023-11-14] MEDS: nicotine 7mg patch - 24hr TD SCH (08:00)
[2023-11-14] MEDS: cephalexin 500mg capsule PO SCH ×2 (08:21→15:32)
[2023-11-14 13:48] LABS: HBSAG SCREEN Negative (Negative); HEP B CORE AB, IGM Negative (Negative); HEP B CORE AB, TOT Negative (Negative)
[2023-11-14] MEDS: methadone 10mg tablet PO SCH (14:47)
[2023-11-14] MEDS: methadone 5mg tablet PO SCH (14:47)
[2023-11-14 19:00] VITALS: RESP 18; O2SAT 97
[2023-11-14 19:42] VITALS: BP 137/80; PULSE 95; RESP 18; TEMP 97; O2SAT 97
[2023-11-14] MEDS: OLANZAPINE 5 MG TABLET PO SCH (20:09)
[2023-11-14] MEDS: NICOTINE POLACRILEX 2 MG LOZENGE BC PRN ×2 (20:24→22:25)
[2023-11-15] MEDS: cephalexin 500mg capsule PO SCH ×3 (00:11→15:52)
[2023-11-15 07:00] VITALS: BP 121/71; PULSE 65; RESP 14; TEMP 96.8; O2SAT 97
[2023-11-15] MEDS ORDERED: METH10SO PO (07:45)
[2023-11-15] MEDS: methadone 10mg tablet PO SCH (08:02)
[2023-11-15] MEDS: methadone 5mg tablet PO SCH (08:02)
[2023-11-15] MEDS: NICOTINE POLACRILEX 2 MG LOZENGE BC PRN ×2 (09:59→13:32)
[2023-11-15] MEDS: methylphenidate 5mg tablet PO SCH (17:07)
[2023-11-15 19:58] VITALS: BP 120/70; PULSE 84; RESP 20; TEMP 97.7; O2SAT 98
[2023-11-15] MEDS: hydrOXYzine 25 MG tablet PO PRN (20:24)
[2023-11-15] MEDS: OLANZAPINE 5 MG TABLET PO SCH (20:24)
[2023-11-16] MEDS: cephalexin 500mg capsule PO SCH ×3 (00:13→15:01)
[2023-11-16 07:00] VITALS: BP 114/61; PULSE 63; RESP 16; TEMP 97.2; O2SAT 98
[2023-11-16] MEDS: nicotine 7mg patch - 24hr TD SCH (08:00)
[2023-11-16] MEDS: methadone 10mg tablet PO SCH (08:23)
[2023-11-16] MEDS: methylphenidate 5mg tablet PO SCH ×3 (08:23→17:15)
[2023-11-16] MEDS: methadone 5mg tablet PO SCH (08:24)
[2023-11-16] MEDS: NICOTINE POLACRILEX 2 MG LOZENGE BC PRN ×3 (11:41→20:40)
[2023-11-16 19:00] VITALS: BP 130/77; PULSE 72; RESP 20; TEMP 98.1; O2SAT 96
[2023-11-16] MEDS: hydrOXYzine 25 MG tablet PO PRN (20:40)
[2023-11-16] MEDS: OLANZAPINE 5 MG TABLET PO SCH (20:40)
[2023-11-17] MEDS: cephalexin 500mg capsule PO SCH ×4 (00:04→23:00)
[2023-11-17 07:00] VITALS: RESP 12; O2SAT 98
[2023-11-17 08:00] VITALS: BP 140/72; PULSE 92; RESP 12; TEMP 98.1; O2SAT 98
[2023-11-17] MEDS: nicotine 7mg patch - 24hr TD SCH (08:00)
[2023-11-17] MEDS: methadone 5mg tablet PO SCH (09:19)
[2023-11-17] MEDS: methadone 10mg tablet PO SCH (09:19)
[2023-11-17] MEDS: methylphenidate 5mg tablet PO SCH ×3 (09:19→16:56)
[2023-11-17] MEDS: NICOTINE POLACRILEX 2 MG LOZENGE BC PRN ×3 (11:38→19:46)
[2023-11-17 19:00] VITALS: RESP 16; O2SAT 98
[2023-11-17] MEDS: acetaminophen 325mg tablet PO PRN ×2 (19:45→23:02)
[2023-11-17 20:00] VITALS: BP 129/78; PULSE 71; RESP 16; TEMP 97.9; O2SAT 98
[2023-11-17] MEDS: OLANZAPINE 5 MG TABLET PO SCH (23:01)
[2023-11-17] MEDS: hydrOXYzine 25 MG tablet PO PRN (23:02)
[2023-11-18 07:00] VITALS: RESP 16; O2SAT 95
[2023-11-18 07:34] VITALS: BP 110/60; PULSE 64; RESP 16; TEMP 98.1; O2SAT 95
[2023-11-18] MEDS: nicotine 7mg patch - 24hr TD SCH (08:00)
[2023-11-18] MEDS: cephalexin 500mg capsule PO SCH ×2 (08:42→16:13)
[2023-11-18] MEDS: methylphenidate 5mg tablet PO SCH ×3 (08:42→16:38)
[2023-11-18] MEDS: methadone 5mg tablet PO SCH (08:42)
[2023-11-18] MEDS: methadone 10mg tablet PO SCH (08:42)
[2023-11-18] MEDS: NICOTINE POLACRILEX 2 MG LOZENGE BC PRN ×5 (12:21→21:00)
[2023-11-18] MEDS: acetaminophen 325mg tablet PO PRN ×2 (16:13→20:24)
[2023-11-18 19:24] VITALS: RESP 20; O2SAT 96
[2023-11-18 19:30] VITALS: BP 145/62; PULSE 78; RESP 20; TEMP 98.8; O2SAT 96
[2023-11-18] MEDS: OLANZAPINE 5 MG TABLET PO SCH (20:23)
[2023-11-18] MEDS: hydrOXYzine 25 MG tablet PO PRN (21:00)
[2023-11-19] MEDS: cephalexin 500mg capsule PO SCH ×3 (02:17→16:11)
[2023-11-19 07:30] VITALS: RESP 16; O2SAT 97
[2023-11-19] MEDS: methadone 5mg tablet PO SCH (07:50)
[2023-11-19] MEDS: methylphenidate 5mg tablet PO SCH ×2 (07:50→11:37)
[2023-11-19] MEDS: methadone 10mg tablet PO SCH (07:50)
[2023-11-19] MEDS: nicotine 7mg patch - 24hr TD SCH (07:51)
[2023-11-19 08:00] VITALS: BP 112/72; PULSE 63; RESP 16; TEMP 97.6; O2SAT 97
[2023-11-19] MEDS: acetaminophen 325mg tablet PO PRN ×3 (10:37→19:04)
[2023-11-19] MEDS: NICOTINE POLACRILEX 2 MG LOZENGE BC PRN ×4 (11:36→19:05)
[2023-11-19] MEDS ORDERED: methylphenidate 5mg tablet PO SCH (17:30)
[2023-11-19 20:05] VITALS: BP 157/89; PULSE 93; RESP 18; TEMP 98.9; O2SAT 97
[2023-11-19] MEDS: hydrOXYzine 25 MG tablet PO PRN (20:48)
[2023-11-19] MEDS: OLANZAPINE 5 MG TABLET PO SCH (20:49)
[2023-11-19 22:16] VITALS: RESP 18; O2SAT 97
[2023-11-20 07:00] VITALS: BP 122/67; PULSE 58; RESP 14; TEMP 97.4; O2SAT 94
[2023-11-20] MEDS: methylphenidate 5mg tablet PO SCH ×2 (08:13→12:17)
[2023-11-20] MEDS: methadone 5mg tablet PO SCH (08:13)
[2023-11-20] MEDS: methadone 10mg tablet PO SCH (08:13)
[2023-11-20] MEDS: nicotine 7mg patch - 24hr TD SCH (08:16)
[2023-11-20] MEDS: NICOTINE POLACRILEX 2 MG LOZENGE BC PRN (12:17)
[2023-11-20] MEDS ORDERED: OLAN10TA73 PO (13:35)
[2023-11-20] MEDS ORDERED: HYDR-3686 PO (13:35)
[2023-11-20] MEDS ORDERED: NICO-630 TD (13:35)
[2023-11-20] MEDS ORDERED: METH-350 PO (13:35)
[2023-11-20] MEDS ORDERED: NICO-907 BC (13:35)
== END 2023-11-20 14:15 | disposition home or self-care (01) | DRG 885 ==
LOC: ADULT MH 16:00
PROVIDERS: ADMIT Psychiatry & Neurology Psychiatry; ATTEND Psychiatry & Neurology Psychiatry
DX: F32.2 Major depressive disorder, single episode, severe without psychotic features (principal); L03.116 Cellulitis of left lower limb; R45.851 Suicidal ideations; Z59.02 Unsheltered homelessness; F15.21 Other stimulant dependence, in remission; F16.91 Hallucinogen use, unspecified, in remission; F20.9 Schizophrenia, unspecified; F90.9 Attention-deficit hyperactivity disorder, unspecified type; F11.90 Opioid use, unspecified, uncomplicated; F17.210 Nicotine dependence, cigarettes, uncomplicated; Z56.0 Unemployment, unspecified; Z88.0 Allergy status to penicillin; Z84.89 Family history of other specified conditions
CPT/HCPCS: 36415; 80061; 83036; 86704; 86705; 87081; 87340; A6449; Q0177

== ENCOUNTER 2024-11-17 17:26 | Emergency (ER) | payer BC, MEDICAID ==
[~2024-11-17] VITALS: Ht 177.8 cm; Wt 58.1 kg
[~2024-11-17 17:26] MED LIST changes: -BUPR1FIL5 SL; +MELA3TAB39 PO; -METH-348 PO; -METH-350 PO; +METH5TAB4 PO; -NICO-630 TD; +NICO-631 TD; -OLAN5TAB75 PO
[2024-11-17 18:12] LABS: BASOPHILS # (AUTO) 0.1 X10'3 (0-0.2); BASOPHILS % (AUTO) 0.5 % (0-1); EOSINOPHILS # (AUTO) 0.4 X10'3 (0-0.9); EOSINOPHILS % (AUTO) 3.4 % (0-6); HEMATOCRIT 43.6 % (42.0-52.0); HEMOGLOBIN 14.6 g/dl (14.0-17.9); MEAN CORPUSCULAR HGB CONC 33.6 g/dL (33.0-36.5); MEAN CORPUSCULAR VOLUME 89.4 FL (78-98); MEAN PLATELET VOLUME 7.1 FL (7.4-10.4); MONOCYTES % (AUTO) 9.1 % (2-12); NEUTROPHILS # (AUTO) 8.1 X10'3 (1.8-7.7); PLATELET COUNT 396 X10'3 (140-440); RED BLOOD COUNT 4.88 X10'6 (4.70-6.10); RED CELL DISTRIBUTION WIDTH 13.5 % (11.5-14.5); WHITE BLOOD COUNT 11.5 X10'3 (4.5-11.0)
[2024-11-17 18:22] LABS: ALBUMIN 3.5 G/DL (3.4-5.0); ANION GAP 8 (8-16); BLOOD UREA NITROGEN 9 MG/DL (7-18); BUN/CREATININE RATIO 12.3 (10.0-20.0); CALCIUM 8.6 MG/DL (8.5-10.1); CHLORIDE 105 MMOL/L (99-107); CREATININE 0.73 MG/DL (0.60-1.10); GLUCOSE 108 MG/DL (70-104); POTASSIUM 4.4 MMOL/L (3.5-5.1); SODIUM 140 MMOL/L (135-145); TOTAL CARBON DIOXIDE 27.3 MMOL/L (24-32); eCRCL 116 ML/MIN; eGFR > 90 ML/MIN
[2024-11-17] MEDS: CefTRIAXone 1000mg IM Kit (w/lidocaine diluent) IM ONE (18:48)
[2024-11-17] MEDS: DOXYCYCLINE 100MG CAPSULE PO STA (18:48)
[2024-11-17] MEDS: ibuprofen tablet 400 MG TABLET PO ONE (18:48)
[2024-11-17] MEDS ORDERED: DOXY100C43 PO (18:59)
[2024-11-17] MEDS ORDERED: IBUP-1984 PO (18:59)
[2024-11-17 19:22] VITALS: BP 125/84; PULSE 65; RESP 16; TEMP 98.6; O2SAT 99
== END 2024-11-17 19:23 | disposition home or self-care (01) ==
LOC: ER 17:27
DX: L03.113 Cellulitis of right upper limb (principal); F20.9 Schizophrenia, unspecified; F12.90 Cannabis use, unspecified, uncomplicated; F15.90 Other stimulant use, unspecified, uncomplicated; F11.90 Opioid use, unspecified, uncomplicated; Z88.0 Allergy status to penicillin; Z79.899 Other long term (current) drug therapy; Z59.00 Homelessness unspecified; Z56.0 Unemployment, unspecified; Z72.89 Other problems related to lifestyle
CPT/HCPCS: 36415; 73130; 80048; 83605; 84145; 85025; 87040; 96372; 99284; J0696